=== PATIENT | male | born 1975 | race Caucasian/White ===

== ENCOUNTER 2019-09-13 02:27 | Observation (INO) ==
[2019-09-13] MEDS ORDERED: Ondansetron ODT 4 MG TAB.RAPDIS SL PRN (05:44)
[2019-09-13] MEDS ORDERED: Acetaminophen 325 MG TABLET PO PRN (05:44)
[2019-09-13] MEDS ORDERED: Naloxone 0.4 MG/ML INJ IVP PRN (05:44)
[2019-09-13] MEDS ORDERED: *HR* LORazepam 2 MG/ML VIAL IVP PRN ×3 (05:47)
[2019-09-13] MEDS: Ringers Solution, Lactated 1,000 ML IVC SCH ×2 (06:48→16:25)
[2019-09-13 07:22] LABS: BUN/Creatinine Ratio 10 (6-26); Blood Urea Nitrogen 7 mg/dL (6-20); Carbon Dioxide 22 mEq/L (23-29); Chloride 101 mEq/L (98-107); Glucose 97 mg/dL (70-105); Osmolality,Calculated 280 (280-300); Potassium 4.1 mEq/L (3.5-5.1); Sodium 136 mEq/L (136-145); eGFR For African Americans > 60 (> 60); eGFR For Non-African Americans > 60 (> 60)
[2019-09-13 07:29] LABS: Troponin I 0.07 ng/mL (< 0.04)
[2019-09-13 07:44] LABS: Thyroid Stimulating Hormone 0.706 mcIU/mL (0.340-5.600)
[2019-09-13 09:25] LABS: Chol/HDL Ratio 3.2 (0-4.9); Cholesterol 214 mg/dL (< 200); HDL Cholesterol 67 mg/dL (40-59); LDL Cholesterol,Calculated 106 mg/dL (0-99); Triglycerides 205 mg/dL (< 150)
[2019-09-13] MEDS: Folic Acid 1 MG TABLET PO SCH (09:49)
[2019-09-13] MEDS: Thiamine (B-1) 100 MG TABLET PO SCH (09:49)
[2019-09-13] MEDS: Vitamin B Complex/Vit C/Vit E 1 EACH TABLET PO SCH (09:49)
[2019-09-13] MEDS: Gabapentin 300 MG CAPSULE PO SCH ×3 (09:56→22:09)
[2019-09-13] MEDS: ARIPiprazole 5 MG TABLET PO SCH (09:56)
[2019-09-13] MEDS: FLUoxetine 20 MG CAPSULE PO SCH (09:56)
[2019-09-13] MEDS: *HR* Heparin 5,000 UNIT/ML VIAL SQ SCH (16:28)
[2019-09-13] MEDS ORDERED: QUEtiapine Fumarate 25 MG TABLET PO SCH (21:00)
[2019-09-14 05:46] LABS: Basophils # 0.1 K/mcL (0.0-0.2); Basophils % 1.2 %; Eosinophils # 0.1 K/mcL (0.0-0.6); Eosinophils % 1.6 %; Hematocrit 44.3 % (37.5-50.1); Hemoglobin 14.8 g/dL (12.9-16.9); Immature Granulocytes % 0.7 % (0-4); Lymphocytes # 2.6 K/mcL (0.6-4.6); Lymphocytes % 34.5 %; Mean Corpuscular HGB Conc 33.4 g/dL (31.6-35.5); Mean Corpuscular Hemoglobin 32.9 pg (28.0-33.3); Mean Corpuscular Volume 98.4 fL (83.0-100.0); Mean Platelet Volume 9.9 fL (9.4-12.4); Monocytes # 0.6 K/mcL (0.0-1.3); Neutrophils # 4.2 K/mcL (1.6-8.9); Platelet Count 268 K/mcL (140-400); Red Cell Distribution Width 13.3 % (11.5-14.5); White Blood Count 7.7 K/mcL (4.3-11.1)
[2019-09-14] MEDS: *HR* Heparin 5,000 UNIT/ML VIAL SQ SCH (05:58)
[2019-09-14 06:05] LABS: Alanine Aminotransferase 18 Units/L (7-52); Albumin 3.7 g/dL (3.5-5.7); Albumin/Globulin Ratio 1.8 (1.1-2.2); Alkaline Phosphatase 90 Units/L (34-104); Aspartate Amino Transferase 23 Units/L (13-39); BUN/Creatinine Ratio 15 (6-26); Bilirubin,Total 1.1 mg/dL (0.3-1.0); Blood Urea Nitrogen 11 mg/dL (6-20); Calcium 9.2 mg/dL (8.6-10.3); Carbon Dioxide 27 mEq/L (23-29); Chloride 100 mEq/L (98-107); Globulin 2.1 g/dL (2.4-3.5); Glucose 91 mg/dL (70-105); Magnesium 1.9 mg/dL (1.6-2.6); Osmolality,Calculated 279 (280-300); Phosphorous 3.9 mg/dL (2.7-4.5); Potassium 3.9 mEq/L (3.5-5.1); Sodium 135 mEq/L (136-145); Total Protein 5.8 g/dL (6.4-8.9); eGFR For African Americans > 60 (> 60); eGFR For Non-African Americans > 60 (> 60)
[2019-09-14] MEDS: Folic Acid 1 MG TABLET PO SCH (08:41)
[2019-09-14] MEDS: Vitamin B Complex/Vit C/Vit E 1 EACH TABLET PO SCH (08:41)
[2019-09-14] MEDS: Gabapentin 300 MG CAPSULE PO SCH (08:41)
[2019-09-14] MEDS: ARIPiprazole 5 MG TABLET PO SCH (08:41)
[2019-09-14] MEDS: Thiamine (B-1) 100 MG TABLET PO SCH (08:41)
[2019-09-14] MEDS: FLUoxetine 20 MG CAPSULE PO SCH (08:41)
[2019-09-14] MEDS ORDERED: Aspirin 81 MG TAB.CHEW PO SCH (09:00)
[2019-09-14 10:58] VITALS: BP 138/85
== END 2019-09-14 15:15 | disposition home or self-care (01) ==
LOC: 3BNU → SUATTDRO 03:54
PROVIDERS: ADMIT Internal Medicine; ATTEND Pharmacist